=== PATIENT | male | born 1970 ===

== ENCOUNTER → 2022-09-30 11:13 | Outpatient (CLI) | payer OTHER, SELFPAY ==
--- NOTE | ~2022-09-30 | US_ITS ---
Thyroid/neck ultrasound. Clinical History: Swelling, mass Findings: Real-time sonography of the thyroid gland and neck was performed. The right lobe measures 3.8 x 1.5 x 1.5 cm. The left lobe measures 3.7 x 1.1 x 1.2 cm. The isthmus is 3 mm in AP diameter. No discrete thyroid nodule identified. Scanning in the remainder of the neck demonstrates several sma ll morphologically normal scattered lymph nodes. No pathologic lymphadenopathy or other suspicious ma ss lesion identified. No abnormal fluid collection seen. Impression: No significant abnormality identified. If there is clinical concern for soft tissue mass, then consid er contrast enhanced CT or MR for further evaluation.. Reviewed, dictated and finalized at location . Impression: No significant abnormality identified. If there is clinical concern for soft ti ssue mass, then consider contrast enhanced CT or MR for further evaluation..
== END ==
PROVIDERS: PCP Nurse Practitioner Family; Visit Provider Nurse Practitioner Family
DX: R22.1 Localized swelling, mass and lump, neck (principal)
CPT/HCPCS: 76536

== ENCOUNTER 2022-10-12 15:06 | Outpatient (CLI) | payer OTHER, SELFPAY ==
--- NOTE | ~2022-10-12 | MR_ITS ---
EXAMINATION: MR orbits face neck wo/w con DATE: 10/12/2022 16:05 INDICATION: Left neck swelling. Dysphagia. TECHNIQUE: Magnetic resonance imaging (MRI) of the neck was performed without and with 20 mL MultiHan ce intravenous contrast. COMPARISON: Ultrasound 09/30/2022 FINDINGS: There is a skin marker in left anterior neck. There is no abnormal neck mass or lymphadenop athy. There is mucosal thickening in the paranasal sinuses. IMPRESSION: 1. No abnormal neck mass or lymphadenopathy. Reviewed, dictated and finalized at location A.
== END 2022-10-12 15:07 ==
LOC: MICIMG 15:07
PROVIDERS: PCP Family Medicine; Visit Provider Nurse Practitioner Family
DX: R22.1 Localized swelling, mass and lump, neck (principal)
CPT/HCPCS: 70543; A9577